=== PATIENT | female | born 1980 | race Caucasian/White ===

== ENCOUNTER 2023-06-09 15:18 | Emergency (ER) | payer OTHER ==
[2023-06-09 15:36] VITALS: BP 145/101; PULSE 79; RESP 20; TEMP 98; BMI 25.3
== END 2023-06-09 19:59 | disposition home or self-care (01) ==
LOC: FER 15:18
DX: R20.2 Paresthesia of skin (principal)
CPT/HCPCS: 70450-TC; 81025; 99284-25

== ENCOUNTER 2025-05-30 13:13 | Emergency (ER) | payer OTHER ==
[2025-05-30 13:27] VITALS: BP 115/88; PULSE 87; RESP 19; TEMP 97.8; BMI 25.0
[2025-05-30] MEDS ORDERED: ACETAMINOPHEN 325 MG TABLET (FP) ONE (13:59)
[2025-05-30] MEDS: ACETAMINOPHEN 325 MG TABLET (FP) PO ONE (14:01)
[2025-05-30] MEDS: ONDANSETRON *ODT* 4 MG TABLET SL ONE (15:00)
[2025-05-30] MEDS ORDERED: ONDANSETRON *ODT* 4 MG TABLET ONE (15:05)
== END 2025-05-30 15:34 | disposition home or self-care (01) ==
LOC: FER 13:13
DX: G43.109 Migraine with aura, not intractable, without status migrainosus (principal); F41.9 Anxiety disorder, unspecified; R20.0 Anesthesia of skin; R06.4 Hyperventilation; R47.89 Other speech disturbances; Z73.3 Stress, not elsewhere classified
CPT/HCPCS: 99283-25; Q0162